=== PATIENT | male | born 1975 | race Caucasian/White ===

== ENCOUNTER 2024-05-23 21:39 | Emergency (ER) | payer OTHER, SELFPAY ==
[2024-05-23 21:47] VITALS: BP 112/74; PULSE 94; RESP 18; O2SAT 100
[2024-05-23 21:52] VITALS: BP 112/74; PULSE 102; RESP 20; TEMP 36.8; O2SAT 100; BMI 30.5
--- NOTE | 2024-05-23 21:53 | ED_ITS ---
<Statement entered by Markus Klein MD - 05/23/24 23:15> I was consulted by the STACI, and we discussed the complexity of the problems being addressed. I approved the treatment and management plan for this patient's care in the emergency department, thus performing a substantive portion of the medical decision making. Markus Klein MD Discharge Plan Disposition Patient Disposition: Home, Self-Care Condition: Good Referrals Follow up/Referrals: Chava Berry [Primary Care Provider] - See instructions Activity Restrictions/Add. Instructions Additional Instructions/Restrictions: You were evaluated in the ER. You are appropriate for discharge at this time. Drink plenty of water, you can also drink electrolyte drinks such as Pedialyte, Gatorade, or Powerade. Make an appointment with your primary care physician for reevaluation in 2 to 3 days to recheck your kidney function and other labs. Return to the ER with new, worsening, or otherwise concerning symptoms. Clinical Impressions Clinical Impression: Acute kidney injury (nontraumatic) Heat exhaustion Qualifiers: Encounter type: initial encounter Qualified Code(s): T67.5XXA - Heat exhaustion, unspecified, initial encounter Discharge ED Provider: Markus Klein General Adult HPI <DANO Rey - Last Filed: 05/23/24 22:26> General Chief complaint: Weakness Stated complaint: Weak,Shaky,vomiting,FAM Time Seen by Provider: 05/23/24 21:53 History of Present Illness HPI narrative: Patient presents for evaluation of weakness headache and vomiting. Patient has been baling hay all day and approximately an hour prior to arrival began having headache vomiting and generalized weakness. He denies chest pain fever chills hemoptysis hematochezia melena diarrhea. Patient is mentating appropriately with Glascow coma score 15 Related Data Allergies Allergy/AdvReac Type Severity Reaction Status Date / Time No Known Allergies Allergy Verified 05/23/24 22:10 PFSH <DANO Rey - Last Filed: 05/23/24 22:26> [facility] Disclaimer: The information contained in this section may have been updated after the patient was seen, as this information can be updated by other users. Social History (Updated 05/23/24 @ 22:26 by DANO Rey) Smoking Status: Never smoker alcohol intake: never current occupational status: employed Travel in the last 8 weeks: None <DANO Rey - Last Filed: 05/23/24 22:26> ROS Obtained: Yes Systems reviewed as appropriate & no additional complaints except as documented Physical Exam <DANO Rey - Last Filed: 05/23/24 22:26> General General appearance: alert and in no apparent distress ENT ENT exam: Present mucous membranes dry Neck Neck exam: Present normal inspection and full ROM; Absent tenderness Chest Chest inspection: Present normal inspection and symmetric chest wall rise Respiratory Respiratory exam: Present normal lung sounds bilaterally; Absent respiratory distress, wheezes or accessory muscle use Cardiovascular Cardiovascular exam: Present regular rate, normal rhythm and normal heart sounds Abdominal Exam Abdominal exam: Present soft, tenderness (Diffuse nonfocal abdominal tenderness without rebound or guarding or rigidity.) and normal bowel sounds; Absent guarding or rebound Extremities Exam Extremities exam: Present normal inspection and full ROM Back Exam Back exam: Present normal inspection and full ROM Neurological Exam Neurological exam: Present alert, oriented X3 and CN II-XII intact Psychiatric Psychiatric exam: Present normal affect and normal mood Skin Skin exam: Present warm (Cool clammy and diaphoretic) and normal color Medical Decision Making <DANO Rey - Last Filed: 05/23/24 22:26> Medical Records Medical records reviewed: Yes I reviewed the patient's medical records. Clay Inquiry Pt receiving controlled substance: No Vital Signs: 05/23/24 21:47 05/23/24 21:52 05/23/24 22:00 Temperature 98.2 F Temperature Source Oral Pulse Rate 94 H 91 H Pulse Rate [Left Radial] 102 H Respiratory Rate 18 20 20 Blood Pressure 112/74 125/88 Blood Pressure [Right Arm] 112/74 Blood Pressure Mean [Right Arm] 86 02 Sat by Pulse Oximetry 100 100 100 Oxygen Delivery Method Room Air Room Air Room Air 05/23/24 22:30 05/23/24 23:00 05/24/24 01:07 Temperature 98.2 F Temperature Source Oral Pulse Rate 88 84 76 Pulse Rate [Left Radial] Respiratory Rate 19 17 14 Blood Pressure 117/73 108/68 L 102/61 L Blood Pressure [Right Arm] Blood Pressure Mean [Right Arm] 02 Sat by Pulse Oximetry 95 98 Oxygen Delivery Method Room Air Room Air Room Air Lab Data Lab results reviewed: Yes I reviewed the patient's lab results. Lab Results 05/23/24 21:51: WBC 10.8, RBC 5.82, Hgb 16.5, Hct 49.5, MCV 85.0, MCH 28.4, MCHC 33.4, RDW 13.8, Plt Count 250, MPV 8.1, Neut % (Auto) 85.5 H, Lymph % (Auto) 8.3 L, Dade % (Auto) 5.6, Eos % (Auto) 0.1, Baso % (Auto) 0.5, Neut # (Auto) 9.2 H, Lymph # (Auto) 0.9, Dade # (Auto) 0.6, Eos # (Auto) 0.0, Baso # (Auto) 0.1, Total Counted 100, Neutrophils % (Manual) 90 H, Lymphocytes % (Manual) 5 L, Atypical Lymphs % 3.0, Monocytes % (Manual) 2, RBC Morphology Normal, Sodium 142, Potassium 5.1, Chloride 108 H, Carbon Dioxide 26, Anion Gap 13.1, BUN 20, C reatinine 1.70 H, Estimated Creat Clear 68, Estimated GFR 44 L, Est GFR ( Amer) 53 L, Glucose 138 H, Calcium 10.2, Magnesium 2.1, Total Bilirubin 0.8, AST 35, ALT 37, Alkaline Phosphatase 92, Total Protein 8.7 H, Albumin 5.0, Globulin 3.7 H, Albumin/Globulin Ratio 1.4, Lipase 59 05/23/24 22:52: Lactate 1.1 05/24/24 00:34: Sodium 139, Potassium 4.6, Chloride 110 H, Carbon Dioxide 27, Anion Gap 6.6, BUN 18, Creatinine 1.30 H D, Estimated Creat Clear 89, Estimated GFR 59, Est GFR ( Amer) 72 D, Glucose 117 H, Calcium 9.1 05/23/24 21:51 05/24/24 00:34 Orders (Tests/Meds): ED MEDICATIONS Discontinued Medications Generic Name Dose Route Start Last Admin Trade Name Freq PRN Reason Stop Dose Admin Acetaminophen 1,000 mg 05/23/24 22:01 05/23/24 22:10 Acetaminophen 1,000mg/100ml Vial IV 05/23/24 22:02 1,000 mg ONCE ONE Administration Lactated Ringer's 1,000 mls @ 999 mls/hr 05/23/24 22:01 05/23/24 22:10 Lactated Ringer's 1000 Ml Bag IV 05/23/24 23:01 999 mls/hr .Q1H1M ONE Administration Lactated Ringer's 1,000 mls @ 1,325 mls/hr 05/23/24 22:32 05/24/24 00:32 Lactated Ringer's 1000 Ml Bag IV 05/24/24 00:32 1,325 mls/hr .Q46M IMAN Administration Ketorolac Tromethamine 15 mg 05/23/24 22:01 05/23/24 22:11 Ketorolac 30mg/Ml Vial IV 05/23/24 22:02 15 mg ONCE ONE Administration Ondansetron HCl 4 mg 05/23/24 22:55 05/23/24 23:10 Ondansetron 4mg/2ml Vial IV 05/23/24 22:56 4 mg ONCE ONE Administration ORDERS Category Date Time Status BMP [Basic Metabolic Panel] Stat Lab 05/24/24 00:34 Completed CBC w/Auto Diff [Complete Blood Count Auto Diff] Stat Lab 05/23/24 21:51 Completed CMP [Comprehensive Metabolic Panel] Stat Lab 05/23/24 21:51 Completed Lactic Acid Stat Lab 05/23/24 22:52 Completed Lipase Stat Lab 05/23/24 21:51 Completed Magnesium Stat Lab 05/23/24 21:51 Completed Medical Decision Narrative: In summary patient is a 48-year-old male who presents to the emergency department for evaluation of weakness headache and nausea vomiting. Patient is hemodynamically stable upon arrival, afebrile. Physical exam is remarkable for cool clammy and diaphoretic skin diffuse nonfocal abdominal pain without rebound or guarding or rigidity. Glascow coma score is 15 patient is oriented to place and person and circumstance. Differential diagnosis includes heat exhaustion versus gastroenteritis versus MATT etc. Initial workup will be conducted with hematologic labs twelve-lead EKG urinalysis.. Initial interventions include crystalloid bolus Toradol Tylenol Zofran. Initial workup initiated by me and pending at the time of handoff to Dr. Navarro at 2300 hrs. <Markus Klein MD - Last Filed: 05/23/24 22:00> Vital Signs: 05/23/24 21:47 05/23/24 21:52 05/23/24 22:00 Temperature 98.2 F Temperature Source Oral Pulse Rate 94 H 91 H Pulse Rate [Left Radial] 102 H Respiratory Rate 18 20 20 Blood Pressure 112/74 125/88 Blood Pressure [Right Arm] 112/74 Blood Pressure Mean [Right Arm] 86 02 Sat by Pulse Oximetry 100 100 100 Oxygen Delivery Method Room Air Room Air Room Air 05/23/24 22:30 05/23/24 23:00 05/24/24 01:07 Temperature 98.2 F Temperature Source Oral Pulse Rate 88 84 76 Pulse Rate [Left Radial] Respiratory Rate 19 17 14 Blood Pressure 117/73 108/68 L 102/61 L Blood Pressure [Right Arm] Blood Pressure Mean [Right Arm] 02 Sat by Pulse Oximetry 95 98 Oxygen Delivery Method Room Air Room Air Room Air Lab Data Lab Results 05/23/24 21:51: WBC 10.8, RBC 5.82, Hgb 16.5, Hct 49.5, MCV 85.0, MCH 28.4, MCHC 33.4, RDW 13.8, Plt Count 250, MPV 8.1, Neut % (Auto) 85.5 H, Lymph % (Auto) 8.3 L, Dade % (Auto) 5.6, Eos % (Auto) 0.1, Baso % (Auto) 0.5, Neut # (Auto) 9.2 H, Lymph # (Auto) 0.9, Dade # (Auto) 0.6, Eos # (Auto) 0.0, Baso # (Auto) 0.1, Total Counted 100, Neutrophils % (Manual) 90 H, Lymphocytes % (Manual) 5 L, Atypical Lymphs % 3.0, Monocytes % (Manual) 2, RBC Morphology Normal, Sodium 142, Potassium 5.1, Chloride 108 H, Carbon Dioxide 26, Anion Gap 13.1, BUN 20, C reatinine 1.70 H, Estimated Creat Clear 68, Estimated GFR 44 L, Est GFR ( Amer) 53 L, Glucose 138 H, Calcium 10.2, Magnesium 2.1, Total Bilirubin 0.8, AST 35, ALT 37, Alkaline Phosphatase 92, Total Protein 8.7 H, Albumin 5.0, Globulin 3.7 H, Albumin/Globulin Ratio 1.4, Lipase 59 05/23/24 22:52: Lactate 1.1 05/24/24 00:34: Sodium 139, Potassium 4.6, Chloride 110 H, Carbon Dioxide 27, Anion Gap 6.6, BUN 18, Creatinine 1.30 H D, Estimated Creat Clear 89, Estimated GFR 59, Est GFR ( Amer) 72 D, Glucose 117 H, Calcium 9.1 Orders (Tests/Meds): ED MEDICATIONS Discontinued Medications Generic Name Dose Route Start Last Admin Trade Name Freq PRN Reason Stop Dose Admin Acetaminophen 1,000 mg 05/23/24 22:01 05/23/24 22:10 Acetaminophen 1,000mg/100ml Vial IV 05/23/24 22:02 1,000 mg ONCE ONE Administration Lactated Ringer's 1,000 mls @ 999 mls/hr 05/23/24 22:01 05/23/24 22:10 Lactated Ringer's 1000 Ml Bag IV 05/23/24 23:01 999 mls/hr .Q1H1M ONE Administration Lactated Ringer's 1,000 mls @ 1,325 mls/hr 05/23/24 22:32 05/24/24 00:32 Lactated Ringer's 1000 Ml Bag IV 05/24/24 00:32 1,325 mls/hr .Q46M IMAN Administration Ketorolac Tromethamine 15 mg 05/23/24 22:01 05/23/24 22:11 Ketorolac 30mg/Ml Vial IV 05/23/24 22:02 15 mg ONCE ONE Administration Ondansetron HCl 4 mg 05/23/24 22:55 05/23/24 23:10 Ondansetron 4mg/2ml Vial IV 05/23/24 22:56 4 mg ONCE ONE Administration ORDERS Category Date Time Status BMP [Basic Metabolic Panel] Stat Lab 05/24/24 00:34 Completed CBC w/Auto Diff [Complete Blood Count Auto Diff] Stat Lab 05/23/24 21:51 Completed CMP [Comprehensive Metabolic Panel] Stat Lab 05/23/24 21:51 Completed Lactic Acid Stat Lab 05/23/24 22:52 Completed Lipase Stat Lab 05/23/24 21:51 Completed Magnesium Stat Lab 05/23/24 21:51 Completed ECG Data Tracing #1: Independently interpreted by me rate is 89, rhythm is regular, axis is normal, no ST elevation in anatomical contiguous leads, QTc 394 <Jan Navarro MD - Last Filed: 05/24/24 01:11> Vital Signs: 05/23/24 21:47 05/23/24 21:52 05/23/24 22:00 Temperature 98.2 F Temperature Source Oral Pulse Rate 94 H 91 H Pulse Rate [Left Radial] 102 H Respiratory Rate 18 20 20 Blood Pressure 112/74 125/88 Blood Pressure [Right Arm] 112/74 Blood Pressure Mean [Right Arm] 86 02 Sat by Pulse Oximetry 100 100 100 Oxygen Delivery Method Room Air Room Air Room Air 05/23/24 22:30 05/23/24 23:00 05/24/24 01:07 Temperature 98.2 F Temperature Source Oral Pulse Rate 88 84 76 Pulse Rate [Left Radial] Respiratory Rate 19 17 14 Blood Pressure 117/73 108/68 L 102/61 L Blood Pressure [Right Arm] Blood Pressure Mean [Right Arm] 02 Sat by Pulse Oximetry 95 98 Oxygen Delivery Method Room Air Room Air Room Air Lab Data Lab Results 05/23/24 21:51: WBC 10.8, RBC 5.82, Hgb 16.5, Hct 49.5, MCV 85.0, MCH 28.4, MCHC 33.4, RDW 13.8, Plt Count 250, MPV 8.1, Neut % (Auto) 85.5 H, Lymph % (Auto) 8.3 L, Dade % (Auto) 5.6, Eos % (Auto) 0.1, Baso % (Auto) 0.5, Neut # (Auto) 9.2 H, Lymph # (Auto) 0.9, Dade # (Auto) 0.6, Eos # (Auto) 0.0, Baso # (Auto) 0.1, Total Counted 100, Neutrophils % (Manual) 90 H, Lymphocytes % (Manual) 5 L, Atypical Lymphs % 3.0, Monocytes % (Manual) 2, RBC Morphology Normal, Sodium 142, Potassium 5.1, Chloride 108 H, Carbon Dioxide 26, Anion Gap 13.1, BUN 20, C reatinine 1.70 H, Estimated Creat Clear 68, Estimated GFR 44 L, Est GFR ( Amer) 53 L, Glucose 138 H, Calcium 10.2, Magnesium 2.1, Total Bilirubin 0.8, AST 35, ALT 37, Alkaline Phosphatase 92, Total Protein 8.7 H, Albumin 5.0, Globulin 3.7 H, Albumin/Globulin Ratio 1.4, Lipase 59 05/23/24 22:52: Lactate 1.1 05/24/24 00:34: Sodium 139, Potassium 4.6, Chloride 110 H, Carbon Dioxide 27, Anion Gap 6.6, BUN 18, Creatinine 1.30 H D, Estimated Creat Clear 89, Estimated GFR 59, Est GFR ( Amer) 72 D, Glucose 117 H, Calcium 9.1 Orders (Tests/Meds): ED MEDICATIONS Discontinued Medications Generic Name Dose Route Start Last Admin Trade Name Freq PRN Reason Stop Dose Admin Acetaminophen 1,000 mg 05/23/24 22:01 05/23/24 22:10 Acetaminophen 1,000mg/100ml Vial IV 05/23/24 22:02 1,000 mg ONCE ONE Administration Lactated Ringer's 1,000 mls @ 999 mls/hr 05/23/24 22:01 05/23/24 22:10 Lactated Ringer's 1000 Ml Bag IV 05/23/24 23:01 999 mls/hr .Q1H1M ONE Administration Lactated Ringer's 1,000 mls @ 1,325 mls/hr 05/23/24 22:32 05/24/24 00:32 Lactated Ringer's 1000 Ml Bag IV 05/24/24 00:32 1,325 mls/hr .Q46M IMAN Administration Ketorolac Tromethamine 15 mg 05/23/24 22:01 05/23/24 22:11 Ketorolac 30mg/Ml Vial IV 05/23/24 22:02 15 mg ONCE ONE Administration Ondansetron HCl 4 mg 05/23/24 22:55 05/23/24 23:10 Ondansetron 4mg/2ml Vial IV 05/23/24 22:56 4 mg ONCE ONE Administration ORDERS Category Date Time Status BMP [Basic Metabolic Panel] Stat Lab 05/24/24 00:34 Completed CBC w/Auto Diff [Complete Blood Count Auto Diff] Stat Lab 05/23/24 21:51 Completed CMP [Comprehensive Metabolic Panel] Stat Lab 05/23/24 21:51 Completed Lactic Acid Stat Lab 05/23/24 22:52 Completed Lipase Stat Lab 05/23/24 21:51 Completed Magnesium Stat Lab 05/23/24 21:51 Completed Medical Decision Narrative: In summary patient is a 48-year-old male who presents to the emergency department for evaluation of weakness headache and nausea vomiting. Patient is hemodynamically stable upon arrival, afebrile. Physical exam is remarkable for cool clammy and diaphoretic skin diffuse nonfocal abdominal pain without rebound or guarding or rigidity. Glascow coma score is 15 patient is oriented to place and person and circumstance. Differential diagnosis includes heat exhaustion versus gastroenteritis versus MATT etc. Initial workup will be conducted with hematologic labs twelve-lead EKG urinalysis.. Initial interventions include crystalloid bolus Toradol Tylenol Zofran. Initial workup initiated by me and pending at the time of handoff to Dr. Navarro at 2300 hrs. Navarro: Upon my assumption of care patient is stable and resting comfortably. Hematologic labs reviewed demonstrate no leukocytosis or anemia, CMP initially with findings of kidney injury, elevated creatinine at 1.70, though I do not have a previous baseline for the patient, this is likely elevated given he is otherwise young and healthy. Patient received the medications listed above including IV fluids. He continues to be stable and resting comfortably. Repeat BMP was performed and demonstrates improvement in his creatinine, now down to 1.30. Given this improvement and patient able to tolerate oral intake, I believe he is appropriate for discharge at this time. Patient was given instructions on symptomatic management, follow up instructions, and return precautions for the emergency department. Patient indicated understanding and was discharged in stable condition. Critical Care <DANO Rey - Last Filed: 05/23/24 22:26> Critical Care Time Critical Care Time: No
--- NOTE | 2024-05-23 21:54 | ECG_ITS ---
APPROVED REPORT Exam: Resting ECG HR:89 bpm ECG Measurements Heart Rate 89 AXES IA 164 P 58 QRSd 87 QRS 35 QT 348 T 34 QTc 394 Conclusion SINUS RHYTHM NORMAL ECG Electronically signed by : DIAMOND ALONSO, 05/25/2024 10:11:21
[2024-05-23 22:00] VITALS: BP 125/88; PULSE 91; RESP 20; O2SAT 100
[2024-05-23 22:10] LABS: Chloride 108 mmol/L (98-107); Sodium 142 mmol/L (136-145)
[2024-05-23] MEDS: LACTATED RINGERS 1000ML 1,000 ML 999 ML IV (22:10)
[2024-05-23] MEDS: ACETAMINOPHEN 1,000MG/100ML VIAL 1000 MG IV (22:10)
[2024-05-23 22:11] LABS: Potassium 5.1 mmoL/L (3.5-5.1)
[2024-05-23] MEDS: KETOROLAC 30MG/ML VIAL 15 MG IV (22:11)
[2024-05-23 22:13] LABS: Alanine Aminotransferase 37 U/L (12-78); Albumin/Globulin Ratio 1.4 (1.1-1.8); Alkaline Phosphatase 92 U/L (38-126); Anion Gap 13.1 mEq/L (5-15); Aspartate Amino Transferase 35 U/L (17-59); Basophils # 0.1 K/mm3 (0-0.2); Basophils % 0.5 % (0.1-2.0); Bilirubin,Total 0.8 mg/dl (0.2-1.3); Blood Urea Nitrogen 20 mg/dl (9-20); Calcium 10.2 mg/dl (8.4-10.2); Carbon Dioxide 26 mmol/L (22.0-30.0); Creatinine Clearance Estimated 68 mL/min (50-200); Eosinophils % 0.1 % (0.1-12.0); Estimated Glomerular Filt Rate 44 ml/min (>60); GFR (African American) 53 ML/MIN (>60); Globulin 3.7 g/dL (1.3-3.2); Glucose 138 mg/dl (74-100); Hematocrit 49.5 % (42.0-52.0); Hemoglobin 16.5 g/dL (14.1-18.0); Lymphocytes # 0.9 K/mm3 (0.7-4.5); Lymphocytes % 8.3 % (10-50); Mean Corpuscular HGB Conc 33.4 g/dL (31.8-35.4); Mean Corpuscular Hemoglobin 28.4 pg (27.0-31.2); Mean Platelet Volume 8.1 fl (7.4-10.4); Monocytes # 0.6 K/mm3 (0.1-1.0); Monocytes % 5.6 % (1.7-9.3); Neutrophils # 9.2 K/mm3 (1.8-7.8); Neutrophils % 85.5 % (37.0-80.0); Platelet Count 250 K/mm3 (142-424); Red Blood Count 5.82 M/mm3 (4.60-6.20); Red Cell Distribution Width 13.8 % (11.5-17.5); Total Protein,Serum 8.7 g/dl (6.3-8.2); White Blood Count 10.8 K/mm3 (4.8-10.8)
[2024-05-23 22:14] LABS: MANUAL DIFFERENTIAL MANUAL DIFFERENTIAL (MANUAL DIFF); Magnesium 2.1 mg/dl (1.6-2.3)
[2024-05-23 22:30] VITALS: BP 117/73; PULSE 88; RESP 19; O2SAT 95
[2024-05-23 22:35] LABS: Lymphocytes % 5 % (10-50); Monocytes % 2 % (2-9); Neutrophils % 90 % (42-76); Total Cells Counted 100
[2024-05-23 22:36] LABS: RBC Morphology Normal
[2024-05-23 22:44] LABS: Lipase 59 U/L (23-300)
[2024-05-23 23:00] VITALS: BP 108/68; PULSE 84; RESP 17; O2SAT 98
[2024-05-23 23:10] LABS: Lactic Acid 1.1 mmol/L (0.7-2.1)
[2024-05-23] MEDS: ONDANSETRON 4MG/2ML VIAL 4 MG IV (23:10)
[2024-05-23] MEDS: LACTATED RINGERS 1000ML 1,000 ML 1325 ML IV (23:17)
[2024-05-24] MEDS: LACTATED RINGERS 1000ML 1,000 ML 1325 ML IV (00:32)
[2024-05-24 00:47] LABS: Chloride 110 mmol/L (98-107); Potassium 4.6 mmoL/L (3.5-5.1); Sodium 139 mmol/L (136-145)
[2024-05-24 00:50] LABS: Anion Gap 6.6 mEq/L (5-15); Blood Urea Nitrogen 18 mg/dl (9-20); Calcium 9.1 mg/dl (8.4-10.2); Carbon Dioxide 27 mmol/L (22.0-30.0); Creatinine Clearance Estimated 89 mL/min (50-200); Estimated Glomerular Filt Rate 59 ml/min (>60); GFR (African American) 72 ML/MIN (>60); Glucose 117 mg/dl (74-100)
[2024-05-24 01:07] VITALS: BP 102/61; PULSE 76; RESP 14; TEMP 36.8; O2SAT 98
== END 2024-05-24 01:16 | disposition home or self-care (01) ==
PROVIDERS: Emergency Medicine; Physician Assistant; Emergency Provider Emergency Medicine; PCP Family Medicine
DX: N17.8 Other acute kidney failure (principal); T67.5XXA Heat exhaustion, unspecified, initial encounter; R11.10 Vomiting, unspecified; R51.9 Headache, unspecified; R53.1 Weakness
CPT/HCPCS: 80048; 80053; 83605; 83690; 83735; 85007; 85025; 85027; 93005; 96361; 96374; 96375; 99284; J0131; J1885; J2405; J7120